=== PATIENT | female | born 1945 | race Caucasian/White ===

== ENCOUNTER 2024-04-10 06:13 | Outpatient (RCR) | payer MEDICARE, OTHER, SELFPAY | END 2024-04-11 10:47 | disposition home or self-care (01) | LOC: RPT 06:13 | PROVIDERS: ATTENDING PHYSICIAN Obstetrics & Gynecology; FAMILY PHYSICIAN Internal Medicine | DX: N81.2 Incomplete uterovaginal prolapse (principal); K59.00 Constipation, unspecified; Z73.6 Limitation of activities due to disability | CPT/HCPCS: 97163; 97530 ==

== ENCOUNTER → 2024-09-27 12:10 | Outpatient (REF) | payer MEDICARE, OTHER, SELFPAY | LOC: PAVMRI 12:10 | PROVIDERS: ATTENDING PHYSICIAN Anesthesiology; FAMILY PHYSICIAN Internal Medicine | DX: M54.16 Radiculopathy, lumbar region (principal) | CPT/HCPCS: 72148 ==

== ENCOUNTER 2024-11-29 18:22 | Emergency (ER) | payer MEDICARE, OTHER, SELFPAY ==
[2024-11-29] VITALS (12 sets, daily range): BP systolic 154–196; BP diastolic 60–79; BMI 27.8
--- NOTE | 2024-11-29 22:59 | ED.GENMED ---
History of Present Illness
General
Chief Complaint: Musculo-Skeletal Complaint
Time Seen by Provider: 11/29/24 19:22
History of Present Illness
History of Present Illness:
79-year-old female presents the emergency department for evaluation of a left wrist injury after a fall. She fell off her couch and braced her fall with the left wrist. Arrives with an obvious deformity to the left wrist. Denies head or neck
injury, no extremity paresthesias
Review of Systems
Review of Systems
Allergies reviewed?: Yes
All Other Systems: ROS reviewed and negative except as documented in HPI and ROS
Phy Exam
Physical Exam
Physical Exam:
GEN: Well appearing, NAD, WDWN
HEENT: Oral mucosa moist, no scleral icterus
Cardiac: Regular rate
Lung: No respiratory distress, no tachypnea
MSK: Deformity of the left distal forearm, neurovascularly intact distal to the injury
Skin: Good color, no pallor or jaundice, no rashes
Neuro: AO x3, moves all extremities freely
Psych: Calm, cooperative
Course
Orders/Labs/Results
Orders:
Orders
11/29/24 18:30
CR Wrist - Left Min 3 Views Urgent
Comment:
Reason For Exam: injury, pain
11/29/24 20:27
CR Wrist - Left Min 2 Views Urgent
Comment:
Reason For Exam: post reduction
11/29/24 21:38
Propofol [Diprivan] 20 ml .ROUTE .STK-MED
11/29/24 22:09
CR Wrist - Left Min 2 Views Urgent
Comment:
Reason For Exam: post reduction
11/29/24 23:08
Oxycodone [Roxicodone] 5 mg PO NOW STA
Vital Signs
Initial and Last Documented VS:
Initial Vital Signs
Temp Pulse Resp BP Pulse Ox
97.9 F 66 16 154/74 94
11/29/24 18:24 11/29/24 18:24 11/29/24 18:24 11/29/24 18:24 11/29/24 18:24
Last Documented Vital Signs
Temp Pulse Resp BP Pulse Ox
98.0 F 63 17 171/60 97
11/29/24 22:00 11/29/24 22:40 11/29/24 22:40 11/29/24 22:40 11/29/24 22:40
Procedures
Moderate Sedation
ASA Risk Score: Class I
Chart and allergies reviewed: Yes
Consent for anesthesia obtained: Yes
Time out completed (validating right patient & procedure): Yes
Moderate Sedation Start Time(when first medication is given): 22:00
History of difficult intubation: No
Airway free of obstruction: Yes
Patient has a gag reflex: Yes
Patient is able to open mouth: Yes
Patient has no dentures: Yes
Patient has no loose teeth: Yes
Medication administered by Provider during Moderate Sedation: IV Propofol (mg)
Total dose administered: 30
Time drug administered: 22:00
Moderate Sedation Procedure End Time: 22:10
Joint/Fracture Reduction
Left Wrist:
Indication for procedure:: Displaced distal radius fracture
Procedure completed by: Leandro Garcia PA-C
Consent form signed: Yes
Joint reduced: with anesthesia sedation
Anesthesia/sedation: 1% Lidocaine and Injection to joint space
Injury was: closed
Further treatement: needs re-check only
Post reduction exam: stable
Capillary Refill: normal
Normal distal neurovascular exam?: Yes
Additional information:
Initial attempt with hematoma block was unsuccessful on postreduction films thus conscious sedation was pursued
MDM/Problems Addressed
MDM/Problems Addressed:
After second attempt under conscious sedation satisfactory alignment was achieved. Patient will follow-up as an outpatient with orthopedic surgery
*Critical Care Note
Total Time (30-74mins, 75-104mins- exclusive of procedures): Not Applicable
ED Attending Note
-
Portions of this chart may have been created with voice recognition software.� Occasional wrong word or��sound alike� substitutions may have occurred due to the inherent limitations of voice recognition software.
Discharge Plan
Departure
Patient Disposition: Home (Routine Discharge)
Date of Disposition: 11/29/24
Time of Disposition: 22:59
Patient with high blood pressure during this ER visit?: No
Discharge Problem:
Fracture of radius, distal, with ulna, left, closed
Instructions: MODERATE SEDATION ADULT, Wrist Fracture
Prescriptions:
New
oxycodone 5 mg tablet
5 mg PO Q8H PRN (Reason: Pain) Qty: 8 0RF
Referrals:
Anatoly Jaeger MD [Active] -
Maximus Morel MD [Family Provider] -
Interventions
Interventions:
*Risk Screen - Suicide Last Done: 11/29/24 18:24
*General Assessment Last Done: 11/29/24 18:24
*Neglect/Abuse Screening Last Done: 11/29/24 19:37
*ED- Fall Risk Assessment Last Done: 11/29/24 19:37
*ED COVID-19 Vaccine History Last Done: 11/29/24 18:24
ED-Musculoskeletal Assessment Last Done: 11/29/24 19:37
Discharge Date and Time
Print Language: MAORI
[2024-11-29] MEDS: ROXICODONE 5 MG PO (23:13)
== END 2024-11-29 23:37 | disposition home or self-care (01) ==
LOC: EMR 18:22
PROVIDERS: EMERGENCY PHYSICIAN Emergency Medicine; FAMILY PHYSICIAN Internal Medicine
DX: S52.592A Other fractures of lower end of left radius, initial encounter for closed fracture (principal); S52.692A Other fracture of lower end of left ulna, initial encounter for closed fracture; W08.XXXA Fall from other furniture, initial encounter
CPT/HCPCS: 99283; 25565; 73100; 73110

== ENCOUNTER → 2024-12-04 15:25 | Outpatient (REF) | payer MEDICARE, OTHER, SELFPAY ==
[2024-12-04 17:22] LABS: % Basophils 0.3 % (0-2); % Immature Granulocytes 0.5 % (0-0.5); % Lymphocytes 20.1 % (20.5-51.1); % Monocytes 7.1 % (1.7-9.3); Absolute Eosinophils 0.1 10^3/uL (0-0.7); Absolute Lymphocytes 1.5 10^3/uL (1.2-3.4); Absolute Monocytes 0.5 10^3/uL (0.1-0.6); Absolute Neutrophils 5.2 10^3/uL (1.4-6.5); Hematocrit 35.8 % (37.0-47.0); Hemoglobin 12.2 g/dL (12.0-16.0); Mean Corp Hgb Conc. 34.1 g/dL (33.0-37.0); Mean Corpuscular Hgb 30.9 pg (27.0-31.0); Mean Corpuscular Volume 90.6 fL (81.0-99.0); Mean Platelet Volume 11.3 fL (7.4-10.4); Nucleated Red Blood Cells % 0 %; Platelet Count 240 10^3/uL (130-400); Red Blood Cell Count 3.95 10^6/uL (4.20-5.40); Red Cell Dist. Width 13.3 % (11.5-14.5); White Blood Cell Count 7.3 10^3/uL (4.8-10.8)
[2024-12-04 17:33] LABS: Blood Urea Nitrogen 21 mg/dl (7-17); Calcium 9.5 mg/dl (8.4-10.2); Carbon Dioxide 26 mmol/L (22-30); Chloride 106 mmol/L (98-107); Glucose 84 mg/dl (70-99); Potassium 4.3 mmol/L (3.5-5.1); Sodium 140 mmol/L (135-145); eGFR > 60.00
== END ==
LOC: RCS 15:25
PROVIDERS: ATTENDING PHYSICIAN Orthopaedic Surgery; FAMILY PHYSICIAN Internal Medicine
DX: Z01.818 Encounter for other preprocedural examination (principal)
CPT/HCPCS: 36415; 80048; 85025; 93005

== ENCOUNTER → 2025-05-01 12:59 | Outpatient (REF) | payer OTHER, MEDICARE, SELFPAY | LOC: EMG 12:59 | PROVIDERS: ATTENDING PHYSICIAN Psychiatry & Neurology Neurology; FAMILY PHYSICIAN Family Medicine | DX: G90.512 Complex regional pain syndrome I of left upper limb (principal); R20.0 Anesthesia of skin | CPT/HCPCS: 95886; 95909 ==